=== PATIENT | male | born 1950 | race African-American/Black ===

== ENCOUNTER 2017-05-25 09:10 | Emergency (ER) | payer OTHER, BC ==
[~2017-05-25] VITALS: Ht 180.3 cm; Wt 96.0 kg
[~2017-05-25 09:10] MED LIST: BL ADULT ASA81 MG PO; LISINOP/HCTZ1 TA1 PO; SIMVASTATIN40 MG PO; VITAMIN D2000 UNI1 OR
[2017-05-25] MEDS ORDERED: NAPROSYN500 MG PO (09:43)
[2017-05-25] MEDS ORDERED: TRAMADOL HYDROC50 MG PO (09:43)
[2017-05-25] MEDS ORDERED: FLEXERIL PO (09:43)
[2017-05-25 09:51] VITALS: BP 150/80
== END 2017-05-25 10:00 | disposition home or self-care (01) | DRG 552 ==
LOC: ED 09:10
DX: S16.1XXA Strain of muscle, fascia and tendon at neck level, initial encounter (principal); S39.012A Strain of muscle, fascia and tendon of lower back, initial encounter; S29.012A Strain of muscle and tendon of back wall of thorax, initial encounter; M62.830 Muscle spasm of back; E11.9 Type 2 diabetes mellitus without complications; I10 Essential (primary) hypertension; E78.00 Pure hypercholesterolemia, unspecified; V49.50XA Passenger injured in collision with unspecified motor vehicles in traffic accident, initial encounter